=== PATIENT | female | born 2005 | race Two or more races ===

== ENCOUNTER 2023-02-27 13:22 | Emergency (ER) | payer MEDICAID ==
[~2023-02-27] VITALS: Ht 175.3 cm; Wt 72.6 kg
[2023-02-27 14:07] VITALS: TEMP 98.1
[2023-02-27] MEDS ORDERED: TETRACAINE HCL 0.5% OPHTALMIC 15 ML BOTTLE OP ONE (14:30)
[2023-02-27] MEDS ORDERED: FLUORESCEIN SODIUM OPHTH 1 EA STRIP ONE ×2 (15:33→15:54)
[2023-02-27] MEDS: FLUORESCEIN SODIUM OPHTH 1 EA STRIP OP ONE ×2 (15:40→16:19)
[2023-02-27] MEDS ORDERED: VALA500T PO (16:27)
[2023-02-27] MEDS ORDERED: TRIF7.5D5 LEFTEYE (16:27)
[2023-02-27] MEDS ORDERED: ACYC400T19 PO (16:30)
[2023-02-27 17:18] LABS: PREGNANCY TEST URINE QUAL POSITIVE (NEGATIVE)
[2023-02-27 17:28] VITALS: BP 136/75; O2SAT 100
== END 2023-02-27 17:28 | disposition home or self-care (01) ==
LOC: ER 13:36
DX: H16.9 Unspecified keratitis (principal); Z33.1 Pregnant state, incidental; Z79.899 Other long term (current) drug therapy
CPT/HCPCS: 99283; 84703; A6410